=== PATIENT | male | born 1950 | race African-American/Black ===

== ENCOUNTER 2019-01-14 09:21 | Inpatient (IN) | payer OTHER ==
[2019-01-14 10:03] VITALS: BMI 25.7
--- NOTE | 2019-01-14 11:33 | HP ---
CIWA Score Nausea/Vomitin Muscle Tremors: 2 Anxiety: 2 Agitation: 2 Paroxysmal Sweats: 1-Minimal Palms Moist Orientation: 0-Oriented Tacttile Disturbances: 1-Very Mild Itch/Numbness Auditory Disturbances: 1-Very Mild Visual Disturbances: 0-None Headache: 2-Mild CIWA-Ar Total Score: 13 - Admission Criteria OASAS Guidelines: Admission for Medically Managed Detox: Requires at least one of the followin. CIWA greater than 12 2. Seizures within the past 24 hours 3. Delirium tremens within the past 24 hours 4. Hallucinations within the past 24 hours 5. Acute intervention needed for co occurring medical disorder 6. Acute intervention needed for co occurring psychiatric disorder 7. Severe withdrawal that cannot be handled at a lower level of care (continued vomiting, continued diarrhea, abnormal vital signs) requiring intravenous medication and/or fluids 8. Admission ROS BHS - HPI Chief Complaint: i need help to stop drinking alcohol and cocaine Allergies/Adverse Reactions: Allergies Allergy/AdvReac Type Severity Reaction Status Date / Time No Known Allergies Allergy Verified 01/14/19 10:03 History of Present Illness: this 68 years old male with alcohol and cocaine dependence,seeking detox, withdrawal symptom, multiple admissions in detox and rehab,last detox 2018 did not recall the facility syncope alcohol related keep relapsing history of hypertension longest period of sobriety 7 months plan for rehab after detox history of esophageal varices 7 years ago - Ebola screening Have you traveled outside of the country in the last 21 days: No (N) Have you had contact with anyone from an Ebola affected area: No Do you have a fever: No - Review of Systems Constitutional: Loss of Appetite, Malaise, Night Sweats, Changes in sleep EENT: reports: Nose Congestion Respiratory: reports: No Symptoms reported Cardiac: reports: No Symptoms Reported GI: reports: Diarrhea, Nausea, Poor Appetite, Indigestion : reports: No Symptoms Reported Musculoskeletal: reports: Back Pain, Muscle Pain Integumentary: reports: Dryness Neuro: reports: Headache, Tremors Endocrine: reports: No Symptoms Reported Hematology: reports: No Symptoms Reported Psychiatric: reports: No Sypmtoms Reported, Judgement Intact, Mood/Affect Appropiate, Orientated x3, Depressed Other Systems: Reviewed and Negative Patient History - Patient Medical History Hx Anemia: No Hx Asthma: No Hx Chronic Obstructive Pulmonary Disease (COPD): No Hx Cancer: No Hx Cardiac Disorders: No Hx Congestive Heart Failure: No Hx Hypertension: Yes (on medication) Hx Hypercholesterolemia: No Hx Pacemaker: No HX Cerebrovascular Accident: No Hx Seizures: No Hx Dementia: No Hx Diabetes: No Hx Gastrointestinal Disorders: No Hx Liver Disease: No Hx Genitourinary Disorders: No Hx Sexually Transmitted Disorders: No Hx Thyroid Disease: No Hx Human Immunodeficiency Virus (HIV): No (last 09/26 negative) Hx Hepatitis C: No Hx Depression: Yes (on med) Hx Suicide Attempt: No Hx Bipolar Disorder: No Hx Schizophrenia: No Other Medical History: no suicidal,no homicidal - Patient Surgical History Past Surgical History: Yes Hx Appendectomy: Yes (in 2011) Other Surgical History: right inguinal hernia with mesh 2018 - PPD History Previous Implant?: Yes Documented Results: Negative w/o proof Implanted On Prior R Admission?: No PPD to be Administered?: No - Smoking Cessation Smoking history: Never smoked - Substance & Tx. History Hx Alcohol Use: Yes Hx Substance Use: Yes Substance Use Type: Alcohol, Cocaine Hx Substance Use Treatment: Yes (2018 unknown facility) - Substances abused Alcohol Substance route: Oral Frequency: Daily Amount used: 1 PINT OF WHISKY, 2 GLASSES OF WINE, 6 (12 OUNCES) BEER Age of first use: 19 Date of last use: 01/14/19 Cocaine Substance route: Smoking Frequency: 3-6 times per week Amount used: 120$ Age of first use: 41 Date of last use: 01/14/19 Family Disease History - Family Disease History Family History: Denies Admission Physical Exam BHS - Vital Signs Vital Signs: Vital Signs - 24 hr 01/14/19 09:57 Temperature 96.6 F L Pulse Rate 914 H Respiratory 18 Rate Blood Pressure 131/79 - Physical General Appearance: Yes: Moderate Distress, Tremorous, Irritable, Sweating, Anxious HEENTM: Yes: Normal ENT Inspection, SALAZRA, Pharynx Normal Respiratory: Yes: Within Normal Limits, Lungs Clear, Normal Breath Sounds Neck: Yes: Within Normal Limits, Supple, Trachea in good position Breast: Yes: Within Normal Limits Cardiology: Yes: Within Normal Limits, Regular Rhythm, Regular Rate, S1, S2 Abdominal: Yes: Within Normal Limits, Normal Bowel Sounds, Non Tender, Flat, Surgical Scar Genitourinary: Yes: Within Normal Limits Back: Yes: Muscle Spasm Musculoskeletal: Yes: Back pain, Muscle Pain Extremities: Yes: Tremors Neurological: Yes: ball ender II-XII NML intact, Fully Oriented, Alert, Motor Strength 5/5 Integumentary: Yes: Dry Lymphatic: Yes: Within Normal Limits - Diagnostic (1) Alcohol dependence with uncomplicated withdrawal Current Visit: Yes Status: Acute (2) Syncope Current Visit: Yes Status: Acute (3) Essential hypertension Current Visit: Yes Status: Acute (4) Cocaine dependence Current Visit: Yes Status: Acute (5) History of esophageal varices Current Visit: Yes Status: Acute (6) History of appendectomy Current Visit: Yes Status: Acute (7) History of right inguinal hernia repair Current Visit: Yes Status: Acute (8) Dehydration Current Visit: Yes Status: Acute Cleared for Admission S - Detox or Rehab [facility] Level of Care: Medically Managed Detox Regimen/Protocol: Librium Breathalyzer - Breathalyzer Breathalyzer: 0.053 Urine Drug Screen - Test Device Lot number: [id number] Expiration date: 11/07/20 - Control Is test valid?: Yes - Results Drug screen NEGATIVE: No Urine drug screen results: TEODORO-Cocaine Inpatient Rehab Admission - Rehab Decision to Admit Inpatient rehab admission?: No
[2019-01-14] MEDS ORDERED: ACETAMINOPHEN 325 MG TABLET (FP) PO PRN ×2 (11:46)
[2019-01-14] MEDS ORDERED: MAGNESIUM CITRATE 300 ML BOTTLE PO PRN (11:46)
[2019-01-14] MEDS ORDERED: BISMUTH SUBSALICYLATE 524 MG/30 ML UD PO PRN (11:46)
[2019-01-14] MEDS ORDERED: MENTHOL/PHENOL 1 EACH UD MM PRN (11:46)
[2019-01-14] MEDS ORDERED: METHOCARBAMOL 500 MG TABLET PO PRN (11:46)
[2019-01-14] MEDS ORDERED: IBUPROFEN 400 MG TABLET (FP) PO PRN (11:46)
[2019-01-14] MEDS ORDERED: MAGNESIUM HYDROX 2400MG/30ML ORAL SUSPENSION 30 ML CUP PO PRN (11:46)
[2019-01-14] MEDS ORDERED: hydrOXYzine PAMOATE 25 MG CAPSULE (FP) PO PRN (11:46)
[2019-01-14] MEDS ORDERED: MAG HYDROX/AL HYDROX/SIMETH 30 ML UNIT-DOSE CUP PO PRN (11:46)
[2019-01-14] MEDS ORDERED: chlordiazePOXIDE HCL 25 MG CAPSULE PO PRN (11:46)
[2019-01-14] MEDS: chlordiazePOXIDE HCL 25 MG CAPSULE PO SCH ×4 (12:48→22:16)
[2019-01-14] MEDS: METOPROLOL TARTRATE 50 MG TABLET (FP) PO SCH (12:48)
[2019-01-14] MEDS ORDERED: MELATONIN 5 MG TABLETS PO PRN (22:00)
[2019-01-14] MEDS: THIAMINE HCL 100 MG TABLET (FP) PO SCH (22:16)
[2019-01-15] MEDS: chlordiazePOXIDE HCL 25 MG CAPSULE PO SCH ×4 (05:34→22:19)
--- NOTE | 2019-01-15 08:50 | CONSULT ---
[facility] Psychiatric Consult - Data Date of interview: 01/15/19 Admission source: [facility] Identifying data: Patient is a 68 year old single male, without children, unemployed, domiciled, and is supported by [facility] Patient admitted to for alcohol and cocaine dependence. Substance Abuse History: Smoking Cessation. Smoking history: Never smoked. - Substance & Tx. History. Hx Alcohol Use: Yes. Hx Substance Use: Yes. Substance Use Type: Alcohol, Cocaine. Hx Substance Use Treatment: Yes (2018 unknown facility). - Substances abused. Alcohol. Substance route: Oral. Frequency: Daily. Amount used: 1 PINT OF WHISKY, 2 GLASSES OF WINE, 6 (12 OUNCES) BEER. Age of first use: 19. Date of last use: 01/14/19. Cocaine. Substance route: Smoking. Frequency: 3-6 times per week. Amount used: 120$. Age of first use: 41. Date of last use: 01/14/19 Medical History: hypertension, Appendectomy, right inguinal hernia with mesh 2017 Psychiatric History: Patient's first psychiatric contact was seven years ago when he was admitted to [facility] after reporting anhedonia, hopelessness, and amotivation. Patient unable to recall the medications he was prescribed. After discharged he continues psychiatric [facility]. Diagnosis of MDD and Anxiety disorder. He recalls being prescribed zoloft but had to immediately stop the medication after he started to experience suicidal thoughts. Patient continues to receive outpatient psychiatric care at [facility] and is currently prescribed effexor 37.5 ER. He reports past history of accepting seroquel 100mg. At present patient reports feeling sad and is experiencing difficulty sleeping. Physical/Sexual Abuse/Trauma History: denies. Mental Status Exam - Mental Status Exam Alert and Oriented to: Time, Place, Person Cognitive Function: Good Patient Appearance: Well Groomed Mood: Sad Affect: Appropriate Patient Behavior: Appropriate, Cooperative Speech Pattern: Appropriate Voice Loudness: Normal Thought Process: Goal Oriented Thought Disorder: Not Present Hallucinations: Denies Suicidal Ideation: Denies Homicidal Ideation: Denies Insight/Judgement: Poor Sleep: Poorly Appetite: Fair Muscle strength/Tone: Normal Gait/Station: Normal Psychiatric Findings - Problem List ([place] 1, 2,3) (1) Depressive disorder Current Visit: Yes Status: Chronic (2) Substance induced mood disorder Current Visit: Yes Status: Acute (3) Alcohol dependence with uncomplicated withdrawal Current Visit: Yes Status: Acute (4) Cocaine dependence Current Visit: Yes Status: Acute (5) Substance-induced sleep disorder Current Visit: Yes Status: Acute - Initial Treatment Plan Initial Treatment Plan: Psychoeducation provided. Detoxification in progress. Will order Effexor 37.5 ER + Seroquel 50mg HS. Benefits and side effects discussed. Verbal consent given.
[2019-01-15 10:00] LABS: ALBUMIN 3.6 g/dl (3.4-5.0); BILIRUBIN,TOTAL 0.7 mg/dL (0.2-1); CALCIUM 8.5 mg/dL (8.5-10.1); CREATININE 1.2 mg/dL (0.55-1.3); POTASSIUM 4.1 mmol/L (3.5-5.1); TOT PROT 7.6 g/dl (6.4-8.2)
[2019-01-15] MEDS ORDERED: VENLAFAXINE HCL 37.5 MG E.R. CAPSULE (FP) PO SCH (10:00)
[2019-01-15] MEDS ORDERED: PRENATAL VITAMINS W/ FOLIC ACID TABLET (FP) PO SCH (10:00)
[2019-01-15] MEDS ORDERED: PANTOPRAZOLE 20 MG TABLET (FP) PO SCH ×2 (10:00→14:30)
[2019-01-15] MEDS: METOPROLOL TARTRATE 50 MG TABLET (FP) PO SCH (10:04)
[2019-01-15 10:10] LABS: HEMATOCRIT 41.3 % (35.4-49); HEMOGLOBIN 13.3 GM/dL (11.7-16.9); MCH 25.9 pg (25.7-33.7); MCHC 32.3 g/dl (32.0-35.9); MEAN CELL VOLUME 80.1 fl (80-96); MEAN PLT VOLUME 9.6 fl (7.5-11.1); PLATELET COUNT 189 K/MM3 (134-434); RBC 5.15 M/mm3 (4.00-5.60); RDW 18.2 % (11.9-15.9); WHITE BLOOD COUNT 6.3 K/mm3 (4.0-10.0)
--- NOTE | 2019-01-15 11:46 | EKG ---
Test Reason : Blood Pressure : / mmHG Vent. Rate : 063 BPM Atrial Rate : 063 BPM P-R Int : 160 ms QRS Dur : 088 ms QT Int : 448 ms P-R-T Axes : 062 018 029 degrees QTc Int : 458 ms NORMAL SINUS RHYTHM POSSIBLE LEFT ATRIAL ENLARGEMENT LEFT VENTRICULAR HYPERTROPHY ABNORMAL ECG NO PREVIOUS ECGS AVAILABLE Confirmed by FATUMA KRAUS MD ([id number]) on 01/15/2019 11:46:22 AM Referred By: Confirmed By:FATUMA KRAUS MD
[2019-01-15 12:33] LABS: URINE APPEARANCE TURBID; URINE BILIRUBIN NEGATIVE (NEGATIVE); URINE COLOR YELLOW; URINE GLUCOSE (UA) NEGATIVE (NEGATIVE); URINE KETONE TRACE (NEGATIVE); URINE LEUK ESTERASE NEGATIVE (NEGATIVE); URINE NITRITE NEGATIVE (NEGATIVE); URINE PROTEIN TRACE (NEGATIVE); URINE UROBILINOGEN 0.2 mg/dL (0.2-1.0)
--- NOTE | 2019-01-15 13:57 | PN ---
[facility] CIWA - CIWA Score Nausea/Vomitin Muscle Tremors: 3 Anxiety: 2 Agitation: 2 Paroxysmal Sweats: 1-Minimal Palms Moist Orientation: 0-Oriented Tacttile Disturbances: 1-Very Mild Itch/Numbness Auditory Disturbances: 0-None Visual Disturbances: 0-None Headache: 0-None Present CIWA-Ar Total Score: 11 S Progress Note (SOAP) Subjective: report history of esophageal varices "clip" 2007 vomited x 3 today after breakfast begin protonix 40 mg po bid discontinue motrin Objective: 01/15/19 13:56 Vital Signs Temperature 97.1 F L 01/15/19 13:32 Pulse Rate 70 01/15/19 13:32 Respiratory Rate 18 01/15/19 13:32 Blood Pressure 139/84 01/15/19 13:32 O2 Sat by Pulse Oximetry (%) Laboratory Last Values WBC 6.3 K/mm3 (4.0-10.0) 01/15/19 08:00 RBC 5.15 M/mm3 (4.00-5.60) 01/15/19 08:00 Hgb 13.3 GM/dL (11.7-16.9) 01/15/19 08:00 Hct 41.3 % (35.4-49) 01/15/19 08:00 MCV 80.1 fl (80-96) 01/15/19 08:00 MCH 25.9 pg (25.7-33.7) 01/15/19 08:00 MCHC 32.3 g/dl (32.0-35.9) 01/15/19 08:00 RDW 18.2 % (11.9-15.9) H 01/15/19 08:00 Plt Count 189 K/MM3 (134-434) 01/15/19 08:00 MPV 9.6 fl (7.5-11.1) 01/15/19 08:00 Sodium 144 mmol/L (136-145) 01/15/19 08:00 Potassium 4.1 mmol/L (3.5-5.1) 01/15/19 08:00 Chloride 108 mmol/L (98-107) H 01/15/19 08:00 Carbon Dioxide 30 mmol/L (21-32) 01/15/19 08:00 Anion Gap 6 MMOL/L (8-16) L 01/15/19 08:00 BUN 14.0 mg/dL (7-18) 01/15/19 08:00 Creatinine 1.2 mg/dL (0.55-1.3) 01/15/19 08:00 Est GFR (CKD-EPI)AfAm 72.09 01/15/19 08:00 Est GFR (CKD-EPI)NonAf 62.20 01/15/19 08:00 Random Glucose 85 mg/dL (74-106) 01/15/19 08:00 Calcium 8.5 mg/dL (8.5-10.1) 01/15/19 08:00 Total Bilirubin 0.7 mg/dL (0.2-1) 01/15/19 08:00 AST 19 U/L (15-37) 01/15/19 08:00 ALT 22 U/L (13-61) 01/15/19 08:00 Alkaline Phosphatase 86 U/L (45-117) 01/15/19 08:00 Total Protein 7.6 g/dl (6.4-8.2) 01/15/19 08:00 Albumin 3.6 g/dl (3.4-5.0) 01/15/19 08:00 Urine Color Yellow 01/15/19 09:30 Urine Appearance Turbid 01/15/19 09:30 Urine pH 5.0 (5.0-8.0) 01/15/19 09:30 Ur Specific [place] 1.027 (1.010-1.035) 01/15/19 09:30 Urine Protein Trace (NEGATIVE) 01/15/19 09:30 Urine Glucose (UA) Negative (NEGATIVE) 01/15/19 09:30 Urine Ketones Trace (NEGATIVE) H 01/15/19 09:30 Urine Blood Negative (NEGATIVE) 01/15/19 09:30 Urine Nitrite Negative (NEGATIVE) 01/15/19 09:30 Urine Bilirubin Negative (NEGATIVE) 01/15/19 09:30 Urine Urobilinogen 0.2 mg/dL (0.2-1.0) 01/15/19 09:30 Ur Leukocyte Esterase Negative (NEGATIVE) 01/15/19 09:30 RPR Titer Nonreactive (NONREACTIVE) 01/15/19 08:00 lab noted Assessment: 01/15/19 13:56 alcohol withdrawal sx Plan: continue alcohol detox
--- NOTE | 2019-01-15 14:00 | PN ---
[facility] Progress Note Note: Medicine consult: hemetemesis, hx varices 68 y/o M with PMH alcohol, cocaine dependence, HTN, hx esophageal varices ([facility]; 2017), depression, anxiety who presented to [facility] for alcohol and cocaine detox. Pt was binge drinking once a week: 6 12 oz cans of beer, a pint of Rogelio, and a bottle of Merlot each time. Has been drinking heavily for 30- 40 yrs. During this time, pt also was smoking cocaine: $100/wk. Denies IVDA. Pt currently on librium protocol Day 2. Medicine team consulted for hemetemesis, hx varices. Per pt, at 6:30 am he received a dose of librium. He subsequently had 1 episode of hemetemesis. Pt went to sleep afterward, and woke up 2-3 hours later with 2-3 episodes of hemetemesis. Denies syncope, hypotension during this time. Without BRBPR or melena. Denies heavy NSAID use. Pt was dx with esoph varices 7 yrs ago, after he had multiple episodes of hemetemesis. Varices were clipped at [facility] by Dr. Joe Mcintosh. Per pt, during the same time, pt was found to have stomach ulcers. Pt has had poor outpatient f/u since, and has not had a repeat EGD since. Takes nexium OTC, is not on protonix. Is on metoprolol. Has never had a colonoscopy before. 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 denies cigarette use. alcohol and cocaine use as above Vitals 01/15/19 13:32 Temperature 97.1 F L Pulse Rate 70 Respiratory 18 Rate Blood Pressure 139/84 Exam general: in NAD. resting comfortably. pleasant heent: NCAT neck: supple cardio: s1, s2 rrr. no r/m/g pulm: CTA b/l abd: nontender, nondistended. normoactive bowel sounds LE: 2+ pt pulses. without edema. w/o brbpr, or melena w/o caput medusae, palmar erythema, etc. Laboratory Tests 01/15/19 01/15/19 01/15/19 08:00 08:00 08:00 WBC 6.3 Hgb 13.3 Hct 41.3 Plt Count 189 Sodium 144 Potassium 4.1 Chloride 108 H BUN 14.0 Creatinine 1.2 Random Glucose 85 AST 19 ALT 22 RPR Titer Nonreactive 01/15/19 09:30 Urine Glucose (UA) Negative Urine Ketones Trace H Urine Blood Negative Urine Nitrite Negative Urine Bilirubin Negative 68 y/o M with PMH alcohol, cocaine dependence, HTN, hx esophageal varices ([facility]; 2017), depression, anxiety who presented to [facility] for alcohol and cocaine detox. #Hemetemesis, hx esoph varices (w clipping) -currently hemodynamically stable. H/H currently stable. f/u repeat CBC -labs do not suggest cirrhosis, rare to have portal HTN w/o setting of cirrhosis. may be alcoholic gastritis -c/w protonix 40mg PO BID -hold NSAIDs -GI: case d/w Dr. Hernandez. will monitor repeat CBC no need for transfer at this time if acute drop then consider -recommend NPO #alcohol withdrawal -c/w librium #JENNIFER vs. JENNIFER on CKD -without Cr baseline. -encourage PO intake #HTN- controlled -hold BB in setting of bleed, to avoid hypotension #depression, anxiety -c/w effexor, seroquel #PPX hold any a/c as possible bleed #Dispo cont'd monitoring on med-surg case d/w GI Dr. Hernandez, d/w attending Dr. Judi Kilpatrick MD PGY-3 Medicine Team [facility]
[2019-01-15] MEDS ORDERED: METOPROLOL TARTRATE 50 MG TABLET (FP) PO PRN (14:41)
[2019-01-15] MEDS ORDERED: PANTOPRAZOLE 20 MG TABLET (FP) PO ONE (15:45)
[2019-01-15] MEDS ORDERED: QUEtiapine FUMARATE 50 MG TABLET PO SCH (22:00)
[2019-01-15] MEDS ORDERED: PANTOPRAZOLE 40 MG TABLET (FP) PO SCH (22:00)
[2019-01-15] MEDS: THIAMINE HCL 100 MG TABLET (FP) PO SCH (22:20)
[2019-01-16] MEDS ORDERED: chlordiazePOXIDE HCL 10 MG CAPSULE PO PRN
[2019-01-16] MEDS ORDERED: chlordiazePOXIDE HCL 10 MG CAPSULE PO SCH (05:00)
[2019-01-16 06:39] VITALS: BP 139/90; PULSE 82; TEMP 96.7
--- NOTE | 2019-01-16 11:31 | DS ---
[facility] Detox Discharge Summary Admission Date: 01/14/19 Discharge Date: 01/16/19 - History Present History: Alcohol Dependence Additional Comments: 68 years old male admitted on 01/14/19 for alcohol withdrawal stabilization patient stated that he is with [facility] for "years" going to meeting once a week on at 130 pm he was doing well but relapse weeks ago patient prefers to return to [facility] today for meeting and phone call was made to [facility] and transportation arranged Pertinent Past History: encourage to bring in medication list and lab report to [facility] - Physical Exam Results Vital Signs: Vital Signs Temperature 96.7 F L 01/16/19 06:38 Pulse Rate 82 01/16/19 06:38 Respiratory Rate 18 01/16/19 06:38 Blood Pressure 139/90 01/16/19 06:38 O2 Sat by Pulse Oximetry (%) Pertinent Admission Physical Exam Findings: alcohol withdrawal sx Laboratory Last Values WBC 6.3 K/mm3 (4.0-10.0) 01/15/19 08:00 RBC 5.15 M/mm3 (4.00-5.60) 01/15/19 08:00 Hgb 13.3 GM/dL (11.7-16.9) 01/15/19 08:00 Hct 41.3 % (35.4-49) 01/15/19 08:00 MCV 80.1 fl (80-96) 01/15/19 08:00 MCH 25.9 pg (25.7-33.7) 01/15/19 08:00 MCHC 32.3 g/dl (32.0-35.9) 01/15/19 08:00 RDW 18.2 % (11.9-15.9) H 01/15/19 08:00 Plt Count 189 K/MM3 (134-434) 01/15/19 08:00 MPV 9.6 fl (7.5-11.1) 01/15/19 08:00 Sodium 144 mmol/L (136-145) 01/15/19 08:00 Potassium 4.1 mmol/L (3.5-5.1) 01/15/19 08:00 Chloride 108 mmol/L (98-107) H 01/15/19 08:00 Carbon Dioxide 30 mmol/L (21-32) 01/15/19 08:00 Anion Gap 6 MMOL/L (8-16) L 01/15/19 08:00 BUN 14.0 mg/dL (7-18) 01/15/19 08:00 Creatinine 1.2 mg/dL (0.55-1.3) 01/15/19 08:00 Est GFR (CKD-EPI)AfAm 72.09 01/15/19 08:00 Est GFR (CKD-EPI)NonAf 62.20 01/15/19 08:00 Random Glucose 85 mg/dL (74-106) 01/15/19 08:00 Calcium 8.5 mg/dL (8.5-10.1) 01/15/19 08:00 Total Bilirubin 0.7 mg/dL (0.2-1) 01/15/19 08:00 AST 19 U/L (15-37) 01/15/19 08:00 ALT 22 U/L (13-61) 01/15/19 08:00 Alkaline Phosphatase 86 U/L (45-117) 01/15/19 08:00 Total Protein 7.6 g/dl (6.4-8.2) 01/15/19 08:00 Albumin 3.6 g/dl (3.4-5.0) 01/15/19 08:00 Urine Color Yellow 01/15/19 09:30 Urine Appearance Turbid 01/15/19 09:30 Urine pH 5.0 (5.0-8.0) 01/15/19 09:30 Ur Specific [place] 1.027 (1.010-1.035) 01/15/19 09:30 Urine Protein Trace (NEGATIVE) 01/15/19 09:30 Urine Glucose (UA) Negative (NEGATIVE) 01/15/19 09:30 Urine Ketones Trace (NEGATIVE) H 01/15/19 09:30 Urine Blood Negative (NEGATIVE) 01/15/19 09:30 Urine Nitrite Negative (NEGATIVE) 01/15/19 09:30 Urine Bilirubin Negative (NEGATIVE) 01/15/19 09:30 Urine Urobilinogen 0.2 mg/dL (0.2-1.0) 01/15/19 09:30 Ur Leukocyte Esterase Negative (NEGATIVE) 01/15/19 09:30 RPR Titer Nonreactive (NONREACTIVE) 01/15/19 08:00 lab noted - Treatment Hospital Course: Detox Protocol Followed, Responded well Patient has Accepted a Rehab Referral to: daniel - Medication Discharge Medications: Ambulatory Orders Metoprolol Tartrate [Lopressor -] 50 mg PO DAILY 01/14/19 Quetiapine Fumarate [Seroquel -] 100 mg PO HS 01/14/19 Venlafaxine HCl [Effexor -] 37.5 mg PO DAILY 01/14/19 Venlafaxine HCl ER [Effexor Xr -] 37.5 mg PO DAILY 01/15/19 - Diagnosis (1) Alcohol dependence with uncomplicated withdrawal Status: Acute (2) Essential hypertension Status: Chronic (3) History of esophageal varices Status: Acute (4) Substance induced mood disorder Status: Suspected - AMA Did Patient Leave Against Medical Advice: Yes
[2019-01-17] MEDS ORDERED: chlordiazePOXIDE HCL 10 MG CAPSULE PO SCH (05:00)
[2019-01-18] MEDS ORDERED: chlordiazePOXIDE HCL 10 MG CAPSULE PO ONE (05:00)
== END 2019-01-16 08:52 | disposition left against medical advice (07) | DRG 894 ==
LOC: YASAS 09:21 → Y3N 12:09
PROVIDERS: ADMIT Surgery; ATTEND Surgery
PROC: HZ2ZZZZ Detoxification Services for Substance Abuse Treatment (ICD-10-PCS; principal; 2019-01-14)
DX: F10.230 Alcohol dependence with withdrawal, uncomplicated (principal); F14.20 Cocaine dependence, uncomplicated; F19.282 Other psychoactive substance dependence with psychoactive substance-induced sleep disorder; K92.0 Hematemesis; F19.24 Other psychoactive substance dependence with psychoactive substance-induced mood disorder; F32.9 Major depressive disorder, single episode, unspecified; I10 Essential (primary) hypertension; E86.0 Dehydration; R55 Syncope and collapse; Z87.19 Personal history of other diseases of the digestive system
CPT/HCPCS: 36415; 80053; 81003; 85027; 86480; 86593; 93005; 93010

== ENCOUNTER 2021-07-15 17:04 | Inpatient (IN) | payer OTHER ==
[2021-07-15 18:26] VITALS: BMI 27.7
[2021-07-15] MEDS ORDERED: ACETAMINOPHEN 325 MG TABLET (FP) PO PRN ×2 (18:55)
[2021-07-15] MEDS ORDERED: MAGNESIUM HYDROX 2400MG/30ML ORAL SUSPENSION 30 ML CUP PO PRN (18:55)
[2021-07-15] MEDS ORDERED: ONDANSETRON *ODT* 4 MG TABLET SL PRN (18:55)
[2021-07-15] MEDS ORDERED: MENTHOL/PHENOL 1 EACH UD MM PRN (18:55)
[2021-07-15] MEDS ORDERED: MAG HYDROX/AL HYDROX/SIMETH 30 ML UNIT-DOSE CUP PO PRN (18:55)
[2021-07-15] MEDS ORDERED: BISMUTH SUBSALICYLATE 524 MG/30 ML PO PRN (18:55)
[2021-07-15] MEDS ORDERED: MAGNESIUM CITRATE 300 ML BOTTLE PO PRN (18:55)
[2021-07-15] MEDS ORDERED: IBUPROFEN 400 MG TABLET (FP) PO PRN (18:55)
[2021-07-15] MEDS ORDERED: diazePAM 5 MG TABLET PO PRN (18:57)
[2021-07-15] MEDS ORDERED: MELATONIN 5 MG TABLETS PO SCH (22:00)
[2021-07-16] MEDS: diazePAM 5 MG TABLET PO SCH ×5 (00:52→22:18)
[2021-07-16] MEDS: THIAMINE HCL 100 MG TABLET (FP) PO SCH ×2 (01:01→22:18)
[2021-07-16] MEDS ORDERED: PRENATAL VITAMINS W/ FOLIC ACID TABLET (FP) PO SCH (10:00)
[2021-07-16] MEDS ORDERED: METOPROLOL TARTRATE 50 MG TABLET (FP) PO SCH (10:00)
[2021-07-16] MEDS ORDERED: VENLAFAXINE HCL 37.5 MG E.R. CAPSULE PO SCH (10:00)
[2021-07-16 11:44] LABS: HEMATOCRIT 42.9 % (35.4-49); HEMOGLOBIN 13.8 GM/dL (11.7-16.9); MCH 28.2 pg (25.7-33.7); MCHC 32.1 g/dl (32.0-35.9); MEAN CELL VOLUME 87.8 fl (80-96); MEAN PLT VOLUME 9.7 fl (7.5-11.1); PLATELET COUNT 188 10^3/uL (134-434); RBC 4.89 M/mm3 (4.00-5.60); RDW 14.9 % (11.9-15.9)
[2021-07-16 12:17] LABS: ALBUMIN 3.4 g/dl (3.4-5.0); CALCIUM 8.5 mg/dL (8.5-10.1)
[2021-07-16 12:20] LABS: CREATININE 1.1 mg/dL (0.55-1.3)
[2021-07-16 12:21] LABS: BILIRUBIN,TOTAL 0.8 mg/dL (0.2-1); TOT PROT 6.7 g/dl (6.4-8.2)
[2021-07-16] MEDS ORDERED: QUEtiapine FUMARATE 50 MG TABLET PO SCH (22:00)
[2021-07-17] MEDS ORDERED: diazePAM 5 MG TABLET PO SCH (06:00)
[2021-07-17 09:24] VITALS: BP 148/99; PULSE 100; TEMP 97.1
[2021-07-18] MEDS ORDERED: diazePAM 5 MG TABLET PO SCH (06:00)
[2021-07-19] MEDS ORDERED: diazePAM 5 MG TABLET PO ONE (06:00)
== END 2021-07-17 10:00 | disposition home or self-care (01) | DRG 897 ==
LOC: YASAS 17:04 → Y3N 21:47
PROVIDERS: ADMIT Allergy & Immunology; ATTEND Allergy & Immunology
PROC: HZ2ZZZZ Detoxification Services for Substance Abuse Treatment (ICD-10-PCS; principal; 2021-07-15)
DX: F10.230 Alcohol dependence with withdrawal, uncomplicated (principal); F14.20 Cocaine dependence, uncomplicated; F19.282 Other psychoactive substance dependence with psychoactive substance-induced sleep disorder; F12.10 Cannabis abuse, uncomplicated; F19.24 Other psychoactive substance dependence with psychoactive substance-induced mood disorder; F42.9 Obsessive-compulsive disorder, unspecified; F32.A Depression, unspecified; I10 Essential (primary) hypertension; K21.9 Gastro-esophageal reflux disease without esophagitis; Z87.19 Personal history of other diseases of the digestive system; Z98.890 Other specified postprocedural states
CPT/HCPCS: 36415; 80053; 82962; 85027; 86780; C9803; U0003; U0005

== ENCOUNTER 2021-11-21 16:15 | Inpatient (IN) | payer OTHER ==
[2021-11-21 17:12] VITALS: BMI 27.2
[2021-11-21] MEDS ORDERED: diazePAM 5 MG TABLET PO PRN (18:06)
[2021-11-21] MEDS ORDERED: IBUPROFEN 400 MG TABLET (FP) PO PRN (18:06)
[2021-11-21] MEDS ORDERED: DICYCLOMINE HCL 10 MG CAPSULE PO PRN (18:06)
[2021-11-21] MEDS ORDERED: BENZOCAINE/MENTHOL (CHLORASEPTIC ) LOZENGE MM PRN (18:06)
[2021-11-21] MEDS ORDERED: METHOCARBAMOL 500 MG TABLET PO PRN (18:06)
[2021-11-21] MEDS ORDERED: BISMUTH SUBSALICYLATE 524 MG/30 ML PO PRN (18:06)
[2021-11-21] MEDS ORDERED: guaiFENesin 200 MG/10 ML 10 ML UNIT-DOSE CUPS PO PRN (18:06)
[2021-11-21] MEDS ORDERED: ACETAMINOPHEN 325 MG TABLET (FP) PO PRN ×2 (18:06)
[2021-11-21] MEDS ORDERED: LOPERAMIDE HCL 2 MG CAPSULE PO PRN (18:06)
[2021-11-21] MEDS ORDERED: MAG HYDROX/AL HYDROX/SIMETH 30 ML UNIT-DOSE CUP PO PRN (18:06)
[2021-11-21] MEDS ORDERED: diazePAM 5 MG TABLET PO ONE (18:06)
[2021-11-21] MEDS ORDERED: MAGNESIUM CITRATE 300 ML BOTTLE PO PRN (18:06)
[2021-11-21] MEDS ORDERED: ONDANSETRON *ODT* 4 MG TABLET SL PRN (18:06)
[2021-11-21] MEDS ORDERED: MAGNESIUM HYDROX 2400MG/30ML ORAL SUSPENSION 30 ML CUP PO PRN (18:06)
[2021-11-21] MEDS ORDERED: hydrOXYzine PAMOATE 25 MG CAPSULE (FP) PO PRN (18:06)
[2021-11-21] MEDS: diazePAM 5 MG TABLET PO SCH (22:39)
[2021-11-21] MEDS: THIAMINE HCL 100 MG TABLET (FP) PO SCH (22:40)
[2021-11-21] MEDS ORDERED: QUEtiapine FUMARATE 25 MG TABLET PO ONE (23:00)
[2021-11-21] MEDS ORDERED: MELATONIN 5 MG TABLETS PO PRN (23:00)
[2021-11-21] MEDS: MINERAL OIL/PETROLAT/WATER TOPICAL CREAM 113 GM JAR TP SCH (23:33)
[2021-11-22] MEDS: diazePAM 5 MG TABLET PO SCH ×4 (05:31→22:07)
[2021-11-22] MEDS: PRENATAL VITAMINS W/ FOLIC ACID TABLET (FP) PO SCH (10:08)
[2021-11-22] MEDS: METOPROLOL TARTRATE 50 MG TABLET (FP) PO SCH (10:08)
[2021-11-22] MEDS: MINERAL OIL/PETROLAT/WATER TOPICAL CREAM 113 GM JAR TP SCH ×2 (10:41→22:08)
[2021-11-22 12:42] LABS: CALCIUM 8.4 mg/dL (8.5-10.1)
[2021-11-22 12:44] LABS: ALBUMIN 3.4 g/dl (3.4-5.0); BLOOD UREA NITROGEN 15.3 mg/dL (7-18)
[2021-11-22 12:49] LABS: BILIRUBIN,TOTAL 0.6 mg/dL (0.2-1); HEMOGLOBIN 13.3 GM/dL (11.7-16.9); MCH 28.2 pg (25.7-33.7); MCHC 32.6 g/dl (32.0-35.9); MEAN CELL VOLUME 86.6 fl (80-96); PLATELET COUNT 175 10^3/uL (134-434); RBC 4.73 M/mm3 (4.00-5.60); RDW 15.8 % (11.9-15.9); TOT PROT 7.1 g/dl (6.4-8.2); WHITE BLOOD COUNT 10.4 K/mm3 (4.0-10.0)
[2021-11-22] MEDS: PANTOPRAZOLE 40 MG TABLET PO SCH (13:03)
[2021-11-22] MEDS ORDERED: QUEtiapine FUMARATE 25 MG TABLET PO SCH (22:00)
[2021-11-22] MEDS: THIAMINE HCL 100 MG TABLET (FP) PO SCH (22:08)
[2021-11-22] MEDS ORDERED: MELATONIN 5 MG TABLETS PO PRN (23:00)
[2021-11-23] MEDS: diazePAM 5 MG TABLET PO SCH ×2 (05:39→13:07)
[2021-11-23] MEDS: METOPROLOL TARTRATE 50 MG TABLET (FP) PO SCH (10:03)
[2021-11-23] MEDS: PANTOPRAZOLE 40 MG TABLET PO SCH (10:03)
[2021-11-23] MEDS: PRENATAL VITAMINS W/ FOLIC ACID TABLET (FP) PO SCH (10:03)
[2021-11-23] MEDS: MINERAL OIL/PETROLAT/WATER TOPICAL CREAM 113 GM JAR TP SCH (10:04)
[2021-11-23 13:28] VITALS: BP 145/76; PULSE 68; TEMP 96.9
[2021-11-23 16:08] LABS: SARS-CoV-2 NAA Not Detected (Not Detected)
[2021-11-24] MEDS ORDERED: diazePAM 5 MG TABLET PO SCH (06:00)
[2021-11-25] MEDS ORDERED: diazePAM 5 MG TABLET PO ONE (06:00)
== END 2021-11-23 15:25 | disposition left against medical advice (07) | DRG 894 ==
LOC: YASAS 16:15 → Y3N 17:42
PROVIDERS: ADMIT Allergy & Immunology; ATTEND Surgery
PROC: HZ2ZZZZ Detoxification Services for Substance Abuse Treatment (ICD-10-PCS; principal; 2021-11-21)
DX: F10.230 Alcohol dependence with withdrawal, uncomplicated (principal); F14.20 Cocaine dependence, uncomplicated; F19.280 Other psychoactive substance dependence with psychoactive substance-induced anxiety disorder; F12.20 Cannabis dependence, uncomplicated; F19.24 Other psychoactive substance dependence with psychoactive substance-induced mood disorder; I10 Essential (primary) hypertension; I83.93 Asymptomatic varicose veins of bilateral lower extremities; K21.9 Gastro-esophageal reflux disease without esophagitis; L85.3 Xerosis cutis; Z87.19 Personal history of other diseases of the digestive system; Z98.890 Other specified postprocedural states
CPT/HCPCS: 36415; 80053; 85027; 86780; C9803-CS; U0003; U0005

== ENCOUNTER 2023-06-17 11:50 | Inpatient (IN) | payer OTHER ==
[2023-06-17 12:21] VITALS: BMI 25.9
[2023-06-17] MEDS ORDERED: LOPERAMIDE HCL 2 MG CAPSULE PO PRN (13:03)
[2023-06-17] MEDS ORDERED: IBUPROFEN 600 MG TABLET (FP) PO PRN (13:03)
[2023-06-17] MEDS ORDERED: MAG HYDROX/AL HYDROX/SIMETH 30 ML UNIT-DOSE CUP PO PRN (13:03)
[2023-06-17] MEDS ORDERED: POLYETHYLENE GLYCOL (HEALTHYLAX) 3350 17 GM PACKET PO PRN (13:03)
[2023-06-17] MEDS ORDERED: BISMUTH SUBSALICYLATE 262 MG/15 ML BTL PO PRN (13:03)
[2023-06-17] MEDS ORDERED: BENZOCAINE/MENTHOL (CHLORASEPTIC ) LOZENGE MM PRN (13:03)
[2023-06-17] MEDS ORDERED: ACETAMINOPHEN 325 MG TABLET (FP) PO PRN (13:03)
[2023-06-17] MEDS ORDERED: P-EPHED 60MG/TRIPROLIDI 2.5MG TABLET PO PRN (13:03)
[2023-06-17] MEDS ORDERED: guaiFENesin 600 MG TABLET.ER (FP) PO PRN (13:03)
[2023-06-17] MEDS ORDERED: MAGNESIUM HYDROX 2400MG/30ML ORAL SUSPENSION 30 ML CUP PO PRN (13:03)
[2023-06-17] MEDS ORDERED: BENZONATATE 200 MG CAPSULE PO PRN (13:03)
[2023-06-17] MEDS ORDERED: IBUPROFEN 400 MG TABLET (FP) PO PRN (13:03)
[2023-06-17] MEDS ORDERED: ONDANSETRON *ODT* 4 MG TABLET SL PRN (13:03)
[2023-06-17] MEDS: PANTOPRAZOLE 40 MG TABLET PO SCH (14:02)
[2023-06-17] MEDS ORDERED: hydrOXYzine PAMOATE 25 MG CAPSULE (FP) PO ONE (15:12)
[2023-06-17 18:40] LABS: HIV INTERPRETATION NEGATIVE (NEGATIVE)
[2023-06-17] MEDS ORDERED: MELATONIN 5 MG TABLETS PO SCH (22:00)
[2023-06-17] MEDS ORDERED: THIAMINE HCL 100 MG TABLET (FP) PO SCH (22:00)
[2023-06-18] MEDS ORDERED: PRENATAL VITAMINS W/ FOLIC ACID TABLET (FP) PO SCH (10:00)
[2023-06-18] MEDS: PANTOPRAZOLE 40 MG TABLET PO SCH (10:28)
[2023-06-18] MEDS ORDERED: METOPROLOL TARTRATE 50 MG TABLET (FP) PO SCH (10:45)
[2023-06-18] MEDS ORDERED: amLODIPine BESYLATE 10 MG TABLET (FP) PO SCH (10:45)
[2023-06-18 12:42] LABS: HEMOGLOBIN 14.6 GM/dL (11.7-16.9); MCH 28.7 pg (25.7-33.7); MCHC 33.3 g/dl (32.0-35.9); MEAN CELL VOLUME 86.1 fl (80-96); MEAN PLT VOLUME 10.7 fl (7.5-11.1); PLATELET COUNT 192 10^3/uL (134-434); RDW 15.3 % (11.9-15.9); WHITE BLOOD COUNT 9.7 K/mm3 (4.0-10.0)
[2023-06-18 12:44] LABS: POTASSIUM 4.9 mmol/L (3.5-5.1)
[2023-06-18 12:47] LABS: CALCIUM 9.1 mg/dL (8.5-10.1)
[2023-06-18 12:48] LABS: ALBUMIN 4.3 g/dl (3.4-5.0); BLOOD UREA NITROGEN 22.7 mg/dL (7-18)
[2023-06-18 12:51] LABS: BILIRUBIN,TOTAL 0.5 mg/dL (0.2-1); CREATININE 1.3 mg/dL (0.55-1.3)
[2023-06-18 12:53] LABS: TOT PROT 8.1 g/dl (6.4-8.2)
[2023-06-18 13:14] VITALS: RESP 18
[2023-06-18 17:51] VITALS: BP 134/84; PULSE 62; TEMP 97.8
== END 2023-06-18 17:00 | disposition home or self-care (01) | DRG 897 ==
LOC: YASAS 11:50 → Y3N 13:53
PROVIDERS: ADMIT Allergy & Immunology; ATTEND Surgery
PROC: HZ2ZZZZ Detoxification Services for Substance Abuse Treatment (ICD-10-PCS; principal; 2023-06-17)
DX: F10.10 Alcohol abuse, uncomplicated (principal); F14.10 Cocaine abuse, uncomplicated; F19.24 Other psychoactive substance dependence with psychoactive substance-induced mood disorder; F32.A Depression, unspecified; I10 Essential (primary) hypertension; K21.9 Gastro-esophageal reflux disease without esophagitis
CPT/HCPCS: 36415; 80053; 80307; 85027; 86780; 87389; 87635; 87811

== ENCOUNTER 2023-07-06 12:49 | Inpatient (IN) | payer OTHER ==
[2023-07-06 13:43] VITALS: BMI 25.9
[2023-07-06] MEDS ORDERED: METHOCARBAMOL 500 MG TABLET PO PRN (17:54)
[2023-07-06] MEDS ORDERED: NALOXONE HCL 0.4 MG/ML VIAL IM PRN (17:54)
[2023-07-06] MEDS ORDERED: IBUPROFEN 600 MG TABLET (FP) PO PRN (17:54)
[2023-07-06] MEDS ORDERED: guaiFENesin 600 MG TABLET.ER (FP) PO PRN (17:54)
[2023-07-06] MEDS ORDERED: IBUPROFEN 400 MG TABLET (FP) PO PRN (17:54)
[2023-07-06] MEDS ORDERED: BENZONATATE 200 MG CAPSULE PO PRN (17:54)
[2023-07-06] MEDS ORDERED: ACETAMINOPHEN 325 MG TABLET (FP) PO PRN (17:54)
[2023-07-06] MEDS ORDERED: BISMUTH SUBSALICYLATE 524 MG/30 ML PO PRN (17:54)
[2023-07-06] MEDS ORDERED: LOPERAMIDE HCL 2 MG CAPSULE PO PRN (17:54)
[2023-07-06] MEDS ORDERED: DICYCLOMINE HCL 10 MG CAPSULE PO PRN (17:54)
[2023-07-06] MEDS ORDERED: MAGNESIUM HYDROX 2400MG/30ML ORAL SUSPENSION 30 ML CUP PO PRN (17:54)
[2023-07-06] MEDS ORDERED: BENZOCAINE/MENTHOL (CHLORASEPTIC ) LOZENGE MM PRN (17:54)
[2023-07-06] MEDS ORDERED: hydrOXYzine PAMOATE 25 MG CAPSULE (FP) PO PRN (17:54)
[2023-07-06] MEDS ORDERED: NALOXONE HCL (KLOXXADO) 8 MG SPRAY NS PRN (17:54)
[2023-07-06] MEDS ORDERED: POLYETHYLENE GLYCOL (HEALTHYLAX) 3350 17 GM PACKET PO PRN (17:54)
[2023-07-06] MEDS ORDERED: ONDANSETRON *ODT* 4 MG TABLET SL PRN (17:54)
[2023-07-06] MEDS ORDERED: MAG HYDROX/AL HYDROX/SIMETH 30 ML UNIT-DOSE CUP PO PRN (17:54)
[2023-07-06] MEDS: amLODIPine BESYLATE 10 MG TABLET (FP) PO SCH (19:32)
[2023-07-06] MEDS: PANTOPRAZOLE 40 MG TABLET PO SCH (19:32)
[2023-07-06] MEDS: THIAMINE HCL 100 MG TABLET (FP) PO SCH (22:09)
[2023-07-06] MEDS: METOPROLOL TARTRATE 50 MG TABLET (FP) PO SCH (22:09)
[2023-07-06] MEDS: MELATONIN 5 MG TABLETS PO SCH (22:09)
[2023-07-07] MEDS ORDERED: LORazepam 0.5 MG TABLET PO PRN
[2023-07-07] MEDS: PANTOPRAZOLE 40 MG TABLET PO SCH (10:41)
[2023-07-07] MEDS: PRENATAL VITAMINS W/ FOLIC ACID TABLET (FP) PO SCH (10:41)
[2023-07-07] MEDS: LORazepam 0.5 MG TABLET PO SCH ×3 (10:42→22:13)
[2023-07-07] MEDS: METOPROLOL TARTRATE 50 MG TABLET (FP) PO SCH (10:42)
[2023-07-07] MEDS: amLODIPine BESYLATE 10 MG TABLET (FP) PO SCH (10:42)
[2023-07-07 11:07] LABS: HEMATOCRIT 40.3 % (35.4-49); MCH 27.8 pg (25.7-33.7); MCHC 32.3 g/dl (32.0-35.9); MEAN CELL VOLUME 86.1 fl (80-96); MEAN PLT VOLUME 9.1 fl (7.5-11.1); PLATELET COUNT 205 10^3/uL (134-434); RBC 4.68 M/mm3 (4.00-5.60); RDW 15.6 % (11.9-15.9); WHITE BLOOD COUNT 5.8 K/mm3 (4.0-10.0)
[2023-07-07 11:40] LABS: CHLORIDE 108 mmol/L (98-107); POTASSIUM 3.7 mmol/L (3.5-5.1); SODIUM 140 mmol/L (136-145)
[2023-07-07 11:48] LABS: ALBUMIN 3.3 g/dl (3.4-5.0); ANION GAP 3 mmol/L (4-13); BLOOD UREA NITROGEN 11.8 mg/dL (7-18); CALCIUM 8.8 mg/dL (8.5-10.1); CO2 28 mmol/L (21-32); GLUCOSE,RANDOM 88 mg/dL (74-106)
[2023-07-07 11:49] LABS: SGOT/AST 14 U/L (15-37)
[2023-07-07 11:51] LABS: BILIRUBIN,TOTAL 0.6 mg/dL (0.2-1); SGPT/ALT 14 U/L (13-61); TOT PROT 7.3 g/dl (6.4-8.2)
[2023-07-07 11:53] LABS: ALK PHOS 78 U/L (45-117)
[2023-07-07] MEDS: THIAMINE HCL 100 MG TABLET (FP) PO SCH (22:12)
[2023-07-07] MEDS: MELATONIN 5 MG TABLETS PO SCH (22:12)
[2023-07-07] MEDS: MIRTAZAPINE 15 MG TABLET (FP) PO SCH (22:13)
[2023-07-08] MEDS: LORazepam 0.5 MG TABLET PO SCH ×4 (05:32→23:58)
[2023-07-08] MEDS: PANTOPRAZOLE 40 MG TABLET PO SCH (10:07)
[2023-07-08] MEDS: PRENATAL VITAMINS W/ FOLIC ACID TABLET (FP) PO SCH (10:07)
[2023-07-08] MEDS: amLODIPine BESYLATE 10 MG TABLET (FP) PO SCH (10:07)
[2023-07-08] MEDS: METOPROLOL TARTRATE 50 MG TABLET (FP) PO SCH (10:07)
[2023-07-08] MEDS: THIAMINE HCL 100 MG TABLET (FP) PO SCH (21:57)
[2023-07-08] MEDS: MELATONIN 5 MG TABLETS PO SCH (21:58)
[2023-07-08] MEDS: MIRTAZAPINE 15 MG TABLET (FP) PO SCH (22:03)
[2023-07-09] MEDS ORDERED: LORazepam 0.5 MG TABLET PO ONE (05:00)
[2023-07-09] MEDS: amLODIPine BESYLATE 10 MG TABLET (FP) PO SCH (09:28)
[2023-07-09] MEDS: PRENATAL VITAMINS W/ FOLIC ACID TABLET (FP) PO SCH (09:28)
[2023-07-09] MEDS: METOPROLOL TARTRATE 50 MG TABLET (FP) PO SCH (09:28)
[2023-07-09] MEDS: PANTOPRAZOLE 40 MG TABLET PO SCH (09:28)
[2023-07-09 13:33] VITALS: BP 113/70; PULSE 71; RESP 18; TEMP 98.1
== END 2023-07-09 14:58 | disposition other institution (70) | DRG 897 ==
LOC: YASAS 12:49 → Y6N 18:05
PROVIDERS: ADMIT Allergy & Immunology; ATTEND Surgery
PROC: HZ2ZZZZ Detoxification Services for Substance Abuse Treatment (ICD-10-PCS; principal; 2023-07-06)
DX: F10.230 Alcohol dependence with withdrawal, uncomplicated (principal); F14.20 Cocaine dependence, uncomplicated; F33.1 Major depressive disorder, recurrent, moderate; F19.282 Other psychoactive substance dependence with psychoactive substance-induced sleep disorder; F19.24 Other psychoactive substance dependence with psychoactive substance-induced mood disorder; F42.9 Obsessive-compulsive disorder, unspecified; I10 Essential (primary) hypertension; K21.9 Gastro-esophageal reflux disease without esophagitis; Z86.19 Personal history of other infectious and parasitic diseases; Z87.11 Personal history of peptic ulcer disease; Z87.19 Personal history of other diseases of the digestive system
CPT/HCPCS: 36415; 80053; 80307; 85027; 86780; 87635

== ENCOUNTER 2023-07-09 14:53 | Inpatient (IN) | payer OTHER ==
[2023-07-09] MEDS ORDERED: MAG HYDROX/AL HYDROX/SIMETH 30 ML UNIT-DOSE CUP PO PRN (16:12)
[2023-07-09] MEDS ORDERED: COLLOIDAL OATMEAL 1 BAR EACH TP PRN (16:12)
[2023-07-09] MEDS ORDERED: NICOTINE POLACRILEX 4 MG GUM BUC PRN (16:12)
[2023-07-09] MEDS ORDERED: POLYETHYLENE GLYCOL (HEALTHYLAX) 3350 17 GM PACKET PO PRN (16:12)
[2023-07-09] MEDS ORDERED: guaiFENesin 600 MG TABLET.ER (FP) PO PRN (16:12)
[2023-07-09] MEDS ORDERED: IBUPROFEN 600 MG TABLET (FP) PO PRN (16:12)
[2023-07-09] MEDS ORDERED: NALOXONE HCL 0.4 MG/ML VIAL IVPUSH PRN (16:12)
[2023-07-09] MEDS ORDERED: LOPERAMIDE HCL 2 MG CAPSULE PO PRN (16:12)
[2023-07-09] MEDS ORDERED: BENZOCAINE/MENTHOL (CHLORASEPTIC ) LOZENGE MM PRN (16:12)
[2023-07-09] MEDS ORDERED: METHOCARBAMOL 500 MG TABLET PO PRN (16:12)
[2023-07-09] MEDS ORDERED: ACETAMINOPHEN 325 MG TABLET (FP) PO PRN (16:12)
[2023-07-09] MEDS ORDERED: NALOXONE HCL (KLOXXADO) 8 MG SPRAY NS PRN (16:12)
[2023-07-09] MEDS ORDERED: IBUPROFEN 400 MG TABLET (FP) PO PRN (16:12)
[2023-07-09] MEDS ORDERED: hydrOXYzine PAMOATE 25 MG CAPSULE (FP) PO PRN (16:12)
[2023-07-09] MEDS ORDERED: BENZONATATE 200 MG CAPSULE PO PRN (16:12)
[2023-07-09] MEDS: THIAMINE HCL 100 MG TABLET (FP) PO SCH (21:15)
[2023-07-09] MEDS: MELATONIN 5 MG TABLETS PO SCH (21:15)
[2023-07-09] MEDS: MIRTAZAPINE 15 MG TABLET (FP) PO SCH (21:16)
[2023-07-09] MEDS: GABAPENTIN 100 MG CAPSULE PO SCH (21:16)
[2023-07-10] MEDS: METOPROLOL TARTRATE 25 MG TABLET (FP) PO SCH (09:58)
[2023-07-10] MEDS: amLODIPine BESYLATE 10 MG TABLET (FP) PO SCH (09:58)
[2023-07-10] MEDS: PRENATAL VITAMINS W/ FOLIC ACID TABLET (FP) PO SCH (09:59)
[2023-07-10] MEDS: PANTOPRAZOLE 40 MG TABLET PO SCH (09:59)
[2023-07-10] MEDS: MELATONIN 5 MG TABLETS PO SCH (21:21)
[2023-07-10] MEDS: GABAPENTIN 100 MG CAPSULE PO SCH (21:22)
[2023-07-10] MEDS: THIAMINE HCL 100 MG TABLET (FP) PO SCH (21:22)
[2023-07-10] MEDS: MIRTAZAPINE 15 MG TABLET (FP) PO SCH (21:22)
[2023-07-11] MEDS: PANTOPRAZOLE 40 MG TABLET PO SCH ×2 (09:53→21:16)
[2023-07-11] MEDS: amLODIPine BESYLATE 10 MG TABLET (FP) PO SCH (09:53)
[2023-07-11] MEDS: PRENATAL VITAMINS W/ FOLIC ACID TABLET (FP) PO SCH (09:53)
[2023-07-11] MEDS: METOPROLOL TARTRATE 25 MG TABLET (FP) PO SCH (09:53)
[2023-07-11] MEDS: MAGNESIUM HYDROX 2400MG/30ML ORAL SUSPENSION 30 ML CUP PO PRN (09:54)
[2023-07-11] MEDS: THIAMINE HCL 100 MG TABLET (FP) PO SCH (21:15)
[2023-07-11] MEDS: GABAPENTIN 100 MG CAPSULE PO SCH (21:15)
[2023-07-11] MEDS: ATORVASTATIN CA 20 MG TABLET (FP) PO SCH (21:15)
[2023-07-11] MEDS: MIRTAZAPINE 15 MG TABLET (FP) PO SCH (21:15)
[2023-07-12] MEDS: GABAPENTIN 100 MG CAPSULE PO SCH ×3 (06:11→21:16)
[2023-07-12] MEDS: PANTOPRAZOLE 40 MG TABLET PO SCH ×2 (10:03→21:16)
[2023-07-12] MEDS: PRENATAL VITAMINS W/ FOLIC ACID TABLET (FP) PO SCH (10:03)
[2023-07-12] MEDS: amLODIPine BESYLATE 10 MG TABLET (FP) PO SCH (10:03)
[2023-07-12] MEDS: metoPROLOL SUCCINATE 25 MG TAB.SR.24H (FP) PO SCH (10:25)
[2023-07-12] MEDS: MIRTAZAPINE 15 MG TABLET (FP) PO SCH (21:16)
[2023-07-12] MEDS: MELATONIN 5 MG TABLETS PO PRN (21:16)
[2023-07-12] MEDS: THIAMINE HCL 100 MG TABLET (FP) PO SCH (21:16)
[2023-07-12] MEDS: ATORVASTATIN CA 20 MG TABLET (FP) PO SCH (21:17)
[2023-07-13] MEDS: GABAPENTIN 100 MG CAPSULE PO SCH ×3 (06:08→21:09)
[2023-07-13] MEDS: MAGNESIUM HYDROX 2400MG/30ML ORAL SUSPENSION 30 ML CUP PO PRN (06:09)
[2023-07-13] MEDS: PRENATAL VITAMINS W/ FOLIC ACID TABLET (FP) PO SCH (09:56)
[2023-07-13] MEDS: amLODIPine BESYLATE 10 MG TABLET (FP) PO SCH (09:56)
[2023-07-13] MEDS: PANTOPRAZOLE 40 MG TABLET PO SCH ×2 (09:56→21:09)
[2023-07-13] MEDS: metoPROLOL SUCCINATE 25 MG TAB.SR.24H (FP) PO SCH (09:57)
[2023-07-13] MEDS: THIAMINE HCL 100 MG TABLET (FP) PO SCH (21:08)
[2023-07-13] MEDS: MELATONIN 5 MG TABLETS PO PRN (21:08)
[2023-07-13] MEDS: ATORVASTATIN CA 20 MG TABLET (FP) PO SCH (21:09)
[2023-07-13] MEDS: MIRTAZAPINE 15 MG TABLET (FP) PO SCH (21:09)
[2023-07-14] MEDS: GABAPENTIN 100 MG CAPSULE PO SCH ×2 (06:09→14:08)
[2023-07-14 06:26] VITALS: TEMP 98.8
[2023-07-14 09:14] VITALS: BP 134/81; PULSE 83; RESP 19
[2023-07-14] MEDS: amLODIPine BESYLATE 10 MG TABLET (FP) PO SCH (10:24)
[2023-07-14] MEDS: PRENATAL VITAMINS W/ FOLIC ACID TABLET (FP) PO SCH (10:24)
[2023-07-14] MEDS: PANTOPRAZOLE 40 MG TABLET PO SCH (10:24)
[2023-07-14] MEDS: metoPROLOL SUCCINATE 25 MG TAB.SR.24H (FP) PO SCH (10:26)
== END 2023-07-14 14:23 | disposition home or self-care (01) | DRG 895 ==
LOC: YASAS 14:53 → Y3E 14:54
PROVIDERS: ADMIT Allergy & Immunology; ATTEND Psychiatry & Neurology Pain Medicine
PROC: HZ42ZZZ Group Counseling for Substance Abuse Treatment, Cognitive-Behavioral (ICD-10-PCS; principal; 2023-07-09)
DX: F10.20 Alcohol dependence, uncomplicated (principal); F14.20 Cocaine dependence, uncomplicated; F19.282 Other psychoactive substance dependence with psychoactive substance-induced sleep disorder; F19.280 Other psychoactive substance dependence with psychoactive substance-induced anxiety disorder; F12.20 Cannabis dependence, uncomplicated; F19.24 Other psychoactive substance dependence with psychoactive substance-induced mood disorder; F41.9 Anxiety disorder, unspecified; I10 Essential (primary) hypertension; K21.9 Gastro-esophageal reflux disease without esophagitis; Z86.19 Personal history of other infectious and parasitic diseases; Z86.11 Personal history of tuberculosis; Z87.11 Personal history of peptic ulcer disease; Z87.19 Personal history of other diseases of the digestive system
CPT/HCPCS: 36415; 86803; 87522; 93005; 93010

== ENCOUNTER 2023-11-18 11:33 | Inpatient (IN) | payer OTHER ==
[2023-11-18 12:20] VITALS: BMI 24.6
[2023-11-18] MEDS ORDERED: IBUPROFEN 600 MG TABLET (FP) PO PRN (13:58)
[2023-11-18] MEDS ORDERED: BISMUTH SUBSALICYLATE 262 MG/15 ML BTL PO PRN (13:58)
[2023-11-18] MEDS ORDERED: POLYETHYLENE GLYCOL (HEALTHYLAX) 3350 17 GM PACKET PO PRN (13:58)
[2023-11-18] MEDS ORDERED: MAGNESIUM HYDROX 2400MG/30ML ORAL SUSPENSION 30 ML CUP PO PRN (13:58)
[2023-11-18] MEDS ORDERED: hydrOXYzine PAMOATE 25 MG CAPSULE (FP) PO PRN (13:58)
[2023-11-18] MEDS ORDERED: NALOXONE HCL (KLOXXADO) 8 MG SPRAY NS PRN (13:58)
[2023-11-18] MEDS ORDERED: ACETAMINOPHEN 325 MG TABLET (FP) PO PRN (13:58)
[2023-11-18] MEDS ORDERED: NALOXONE HCL 0.4 MG/ML VIAL IM PRN (13:58)
[2023-11-18] MEDS ORDERED: BENZOCAINE/MENTHOL (CHLORASEPTIC ) LOZENGE MM PRN (13:58)
[2023-11-18] MEDS ORDERED: LOPERAMIDE HCL 2 MG CAPSULE PO PRN (13:58)
[2023-11-18] MEDS ORDERED: DICYCLOMINE HCL 10 MG CAPSULE PO PRN (13:58)
[2023-11-18] MEDS ORDERED: ONDANSETRON *ODT* 4 MG TABLET SL PRN (13:58)
[2023-11-18] MEDS ORDERED: METHOCARBAMOL 500 MG TABLET PO PRN (13:58)
[2023-11-18] MEDS ORDERED: guaiFENesin 600 MG TABLET.ER (FP) PO PRN (13:58)
[2023-11-18] MEDS ORDERED: BENZONATATE 200 MG CAPSULE PO PRN (13:58)
[2023-11-18] MEDS ORDERED: IBUPROFEN 400 MG TABLET (FP) PO PRN (13:58)
[2023-11-18] MEDS ORDERED: LORazepam 1 MG TABLET PO PRN (14:03)
[2023-11-18] MEDS: LORazepam 1 MG TABLET PO SCH (17:21)
[2023-11-18] MEDS: MELATONIN 5 MG TABLETS PO SCH (22:45)
[2023-11-18] MEDS: THIAMINE 100 MG TABLET PO SCH (22:46)
[2023-11-19] MEDS: PRENATAL VITAMINS W/ FOLIC ACID TABLET (FP) PO SCH (10:02)
[2023-11-19 14:54] LABS: HEMOGLOBIN 12.7 GM/dL (11.7-16.9); MCH 27.4 pg (25.7-33.7); MCHC 33.5 g/dl (32.0-35.9); MEAN CELL VOLUME 81.6 fl (80-96); MEAN PLT VOLUME 9.2 fl (7.5-11.1); PLATELET COUNT 217 10^3/uL (134-434); RBC 4.65 M/mm3 (4.00-5.60); RDW 16.2 % (11.9-15.9); WHITE BLOOD COUNT 5.4 K/mm3 (4.0-10.0)
[2023-11-19 14:58] LABS: CHLORIDE 109 mmol/L (98-107); SODIUM 141 mmol/L (136-145)
[2023-11-19 15:12] LABS: BILIRUBIN,TOTAL 0.4 mg/dL (0.2-1); TOT PROT 7.4 g/dl (6.4-8.2)
[2023-11-19 15:13] LABS: ALBUMIN 3.5 g/dl (3.4-5.0); ALK PHOS 95 U/L (45-117); ANION GAP 6 mmol/L (4-13); BLOOD UREA NITROGEN 16.9 mg/dL (7-18); CALCIUM 8.9 mg/dL (8.5-10.1); CO2 26 mmol/L (21-32); GLUCOSE,RANDOM 106 mg/dL (74-106)
[2023-11-19 15:16] LABS: CREATININE 1.2 mg/dL (0.55-1.3); SGPT/ALT 16 U/L (13-61)
[2023-11-19 15:20] LABS: SGOT/AST 24 U/L (15-37)
[2023-11-19] MEDS: P-EPHED 60MG/TRIPROLIDI 2.5MG TABLET PO PRN (15:40)
[2023-11-19] MEDS: MAG HYDROX/AL HYDROX/SIMETH 30 ML UNIT-DOSE CUP PO PRN (18:00)
[2023-11-19] MEDS: PANTOPRAZOLE 40 MG TABLET PO SCH (22:16)
[2023-11-19] MEDS: MIRTAZAPINE 15 MG TABLET (FP) PO SCH (22:17)
[2023-11-19] MEDS: GABAPENTIN 100 MG CAPSULE PO SCH (22:17)
[2023-11-20] MEDS: LORazepam 1 MG TABLET PO SCH (05:24)
[2023-11-20] MEDS: amLODIPine BESYLATE 10 MG TABLET (FP) PO SCH (10:18)
[2023-11-21] MEDS ORDERED: LORazepam 0.5 MG TABLET PO PRN
[2023-11-21] MEDS: LORazepam 0.5 MG TABLET PO SCH (05:45)
[2023-11-22] MEDS: LORazepam 0.5 MG TABLET PO ONE (05:26)
[2023-11-22 06:13] VITALS: TEMP 97.7
[2023-11-22 08:51] VITALS: BP 119/69; PULSE 84; RESP 18
== END 2023-11-22 10:10 | disposition home or self-care (01) | DRG 897 ==
LOC: YASAS 11:33 → Y6N 14:12
PROVIDERS: ADMIT Allergy & Immunology; ATTEND Surgery
PROC: HZ2ZZZZ Detoxification Services for Substance Abuse Treatment (ICD-10-PCS; principal; 2023-11-18)
DX: F10.230 Alcohol dependence with withdrawal, uncomplicated (principal); F14.20 Cocaine dependence, uncomplicated; F19.282 Other psychoactive substance dependence with psychoactive substance-induced sleep disorder; F41.8 Other specified anxiety disorders; G47.00 Insomnia, unspecified; I10 Essential (primary) hypertension; K21.9 Gastro-esophageal reflux disease without esophagitis; Z87.11 Personal history of peptic ulcer disease; Z87.19 Personal history of other diseases of the digestive system
CPT/HCPCS: 36415; 80053; 80305; 80307; 85027; 86780; 93005; 93010

== ENCOUNTER 2024-03-04 12:29 | Inpatient (IN) | payer OTHER ==
[2024-03-04 13:06] VITALS: BMI 24.7
[2024-03-04] MEDS ORDERED: BISMUTH SUBSALICYLATE 524 MG/30 ML PO PRN (16:28)
[2024-03-04] MEDS ORDERED: IBUPROFEN 600 MG TABLET (FP) PO PRN (16:28)
[2024-03-04] MEDS ORDERED: ONDANSETRON *ODT* 4 MG TABLET SL PRN (16:28)
[2024-03-04] MEDS ORDERED: BENZOCAINE/MENTHOL (CHLORASEPTIC ) LOZENGE MM PRN (16:28)
[2024-03-04] MEDS ORDERED: BENZONATATE 200 MG CAPSULE PO PRN (16:28)
[2024-03-04] MEDS ORDERED: guaiFENesin 600 MG TABLET.ER (FP) PO PRN (16:28)
[2024-03-04] MEDS ORDERED: METHOCARBAMOL 500 MG TABLET PO PRN (16:28)
[2024-03-04] MEDS ORDERED: IBUPROFEN 400 MG TABLET (FP) PO PRN (16:28)
[2024-03-04] MEDS ORDERED: LOPERAMIDE HCL 2 MG CAPSULE PO PRN (16:28)
[2024-03-04] MEDS ORDERED: NALOXONE (NARCAN) HCL 4 MG/0.1 ML SPRAY NS PRN (16:28)
[2024-03-04] MEDS ORDERED: NALOXONE HCL 0.4 MG/ML VIAL IM PRN (16:28)
[2024-03-04] MEDS ORDERED: LORazepam 1 MG TABLET PO PRN (16:28)
[2024-03-04] MEDS ORDERED: MAG HYDROX/AL HYDROX/SIMETH 30 ML UNIT-DOSE CUP PO PRN (16:28)
[2024-03-04] MEDS ORDERED: DICYCLOMINE HCL 10 MG CAPSULE PO PRN (16:28)
[2024-03-04] MEDS ORDERED: ACETAMINOPHEN 325 MG TABLET (FP) PO PRN (16:28)
[2024-03-04] MEDS ORDERED: amLODIPine BESYLATE 5 MG TABLET (FP) ONE (16:42)
[2024-03-04] MEDS: amLODIPine BESYLATE 10 MG TABLET (FP) PO SCH (16:47)
[2024-03-04] MEDS: PANTOPRAZOLE 40 MG TABLET PO SCH (17:24)
[2024-03-04] MEDS: MELATONIN 5 MG TABLETS PO SCH (22:10)
[2024-03-04] MEDS: LORazepam 2 MG TABLET PO SCH (22:12)
[2024-03-04] MEDS: THIAMINE 100 MG TABLET PO SCH (22:12)
[2024-03-05] MEDS: PRENATAL VITAMINS W/ FOLIC ACID TABLET (FP) PO SCH (10:14)
[2024-03-05 11:04] LABS: HEMATOCRIT 38.6 % (35.4-49); HEMOGLOBIN 12.5 GM/dL (11.7-16.9); MCH 25.9 pg (25.7-33.7); MCHC 32.3 g/dl (32.0-35.9); MEAN CELL VOLUME 80.2 fl (80-96); MEAN PLT VOLUME 9.4 fl (7.5-11.1); PLATELET COUNT 183 10^3/uL (134-434); RBC 4.82 M/mm3 (4.00-5.60); RDW 18.3 % (11.9-15.9); WHITE BLOOD COUNT 5.3 K/mm3 (4.0-10.0)
[2024-03-05 11:06] LABS: CHLORIDE 108 mmol/L (98-107); POTASSIUM 3.9 mmol/L (3.5-5.1); SODIUM 141 mmol/L (136-145)
[2024-03-05 11:09] LABS: ALBUMIN 3.7 g/dl (3.4-5.0); ANION GAP 5 mmol/L (4-13); BLOOD UREA NITROGEN 14.5 mg/dL (7-18); CALCIUM 8.7 mg/dL (8.5-10.1); CO2 28 mmol/L (21-32); GLUCOSE,RANDOM 94 mg/dL (74-106)
[2024-03-05 11:12] LABS: CREATININE 1.2 mg/dL (0.55-1.3); SGOT/AST 25 U/L (15-37); SGPT/ALT 11 U/L (13-61)
[2024-03-05 11:14] LABS: BILIRUBIN,TOTAL 0.6 mg/dL (0.2-1); TOT PROT 7.3 g/dl (6.4-8.2)
[2024-03-05 11:15] LABS: ALK PHOS 80 U/L (45-117)
[2024-03-05] MEDS: GABAPENTIN 100 MG CAPSULE PO SCH (22:20)
[2024-03-05] MEDS: MIRTAZAPINE 15 MG TABLET (FP) PO SCH (22:20)
[2024-03-06] MEDS: LORazepam 1 MG TABLET PO SCH (05:29)
[2024-03-06] MEDS: MAGNESIUM HYDROX 2400MG/30ML ORAL SUSPENSION 30 ML CUP PO PRN (15:07)
[2024-03-06 23:42] LABS: PH,URINE 5.5 (5.0-8.0); URINE APPEARANCE CLEAR; URINE BILIRUBIN NEGATIVE (NEGATIVE); URINE COLOR YELLOW; URINE GLUCOSE (UA) NEGATIVE (NEGATIVE); URINE KETONE TRACE (NEGATIVE); URINE LEUK ESTERASE NEGATIVE (NEGATIVE); URINE NITRITE NEGATIVE (NEGATIVE); URINE PROTEIN TRACE (NEGATIVE); URINE UROBILINOGEN 0.2 mg/dL (0.2-1.0)
[2024-03-07] MEDS ORDERED: LORazepam 0.5 MG TABLET PO PRN
[2024-03-07] MEDS: LORazepam 0.5 MG TABLET PO SCH (05:29)
[2024-03-07] MEDS: hydrOXYzine PAMOATE 25 MG CAPSULE (FP) PO PRN (15:41)
[2024-03-07] MEDS: GABAPENTIN 100 MG CAPSULE PO SCH (22:16)
[2024-03-08] MEDS: LORazepam 0.5 MG TABLET PO ONE ×2 (05:28→17:05)
[2024-03-08] MEDS: POLYETHYLENE GLYCOL (HEALTHYLAX) 3350 17 GM PACKET PO PRN (10:04)
[2024-03-09] MEDS: LORazepam 0.5 MG TABLET PO ONE (05:10)
[2024-03-09 05:59] VITALS: RESP 16
[2024-03-09 09:04] VITALS: BP 116/75; PULSE 75; TEMP 97.8
== END 2024-03-09 11:15 | disposition home or self-care (01) | DRG 897 ==
LOC: YASAS 12:29 → Y3N 16:49
PROVIDERS: ADMIT Surgery; ATTEND Surgery
PROC: HZ2ZZZZ Detoxification Services for Substance Abuse Treatment (ICD-10-PCS; principal; 2024-03-04)
DX: F10.230 Alcohol dependence with withdrawal, uncomplicated (principal); F14.20 Cocaine dependence, uncomplicated; F33.1 Major depressive disorder, recurrent, moderate; F19.24 Other psychoactive substance dependence with psychoactive substance-induced mood disorder; F41.9 Anxiety disorder, unspecified; I10 Essential (primary) hypertension; K21.9 Gastro-esophageal reflux disease without esophagitis; Z87.19 Personal history of other diseases of the digestive system; Z86.59 Personal history of other mental and behavioral disorders
CPT/HCPCS: 36415; 80053; 80305; 80307; 81003; 85027; 86780; 93005; 93010